=== PATIENT | female | born 1970 | race Caucasian/White ===

== ENCOUNTER 2022-04-01 11:51 | Outpatient (CLI) | payer OTHER | END 2022-04-01 11:52 | disposition home or self-care (01) | LOC: CSHMAMMO 11:51 | PROVIDERS: ATTEND Family Medicine | DX: Z53.9 Procedure and treatment not carried out, unspecified reason (principal) ==

== ENCOUNTER 2022-08-21 15:53 | Outpatient (CLI) | payer OTHER | END 2022-08-21 15:54 | disposition home or self-care (01) | LOC: CSHRAD 15:53 | PROVIDERS: ATTEND Family Medicine | DX: R06.02 Shortness of breath (principal); R05.3 Chronic cough; R91.8 Other nonspecific abnormal finding of lung field | CPT/HCPCS: 71046 ==

== ENCOUNTER 2022-10-01 10:32 | Outpatient (CLI) | payer OTHER ==
[2022-10-01] MEDS ORDERED: Iopamidol 300 61% 100 ML VIAL FS ONE (11:29)
== END 2022-10-01 10:33 | disposition home or self-care (01) ==
LOC: CSHCT 10:32
PROVIDERS: ATTEND Family Medicine
DX: R91.8 Other nonspecific abnormal finding of lung field (principal); Z72.0 Tobacco use; M06.9 Rheumatoid arthritis, unspecified; K76.0 Fatty (change of) liver, not elsewhere classified
CPT/HCPCS: 71260

== ENCOUNTER 2023-10-23 11:44 | Outpatient (CLI) | payer MEDICAID | END 2023-10-23 11:45 | disposition home or self-care (01) | LOC: CSHMAMMO 11:44 | PROVIDERS: ATTEND Family Medicine | DX: Z12.31 Encounter for screening mammogram for malignant neoplasm of breast (principal); Z80.3 Family history of malignant neoplasm of breast; N64.89 Other specified disorders of breast | CPT/HCPCS: 77067 ==